=== PATIENT | male | born 1995 | race Two or more races ===

== ENCOUNTER 2024-09-19 20:45 | Emergency (ER) | payer MEDICAID, SELFPAY ==
[2024-09-19 20:46] VITALS: BMI 30.4
[2024-09-19 21:00] VITALS: BP 147/94; PULSE 76; RESP 16; TEMP 37; O2SAT 99
--- NOTE | 2024-09-19 21:14 | XR_ITS ---
Examination: CT abdomen and pelvis without contrast. Coronal 3-D reconstructions. Sagittal 2-D reconstructions. Date and time of exam:September 19, 2024 1118 hrs. Indications: Left leg pain beginning 2 days ago CTDI: vol (mGy): 8.08 DLP: (mGycm): 470 Technique: Axial images of the abdomen have been obtained, 3 mm slice thickness Intravenous contrast material has not been administered. Low dose protocols were performed. One or more of the following dose reduction techniques were used; automated exposure control, adjustment of the mA and/or KV according to patient size, use of iterative reconstruction technique. Findings: No focal liver or splenic lesions Contracted gallbladder No pancreatic or adrenal mass No renal or ureteral calculi, no hydronephrosis Aorta normal size No bowel obstruction No pericecal inflammatory changes No diverticulitis No bladder mass or bladder calculi No prostatomegaly Impression: No renal or ureteral calculi, no hydronephrosis Normal appendix No bladder mass or bladder calculi
--- NOTE | 2024-09-19 21:14 | PD.EDRME ---
Rapid Medical Screening Exam RME Arrival date/time: 09/19/24 20:45 29-year-old male presents emergency department complaining of left-sided flank pain and nausea for 2 days. Chief Complaint: Abdominal Pain Time Seen by Provider: 09/19/24 20:55 Vital signs: Vital Signs Temperature 98.6 F 09/19/24 21:00 Pulse Rate 76 09/19/24 21:00 Respiratory Rate 16 09/19/24 21:00 Blood Pressure 147/94 H 09/19/24 21:00 Pulse Oximetry (%) 99 09/19/24 21:00 Oxygen Delivery Method Room Air 09/19/24 21:00 Vital signs reviewed by provider: Yes
[2024-09-19 21:40] LABS: Basophils % (Auto) 0 % (0-2.5); Eosinophils # (Auto) 0.2 Thou/mm3 (0.0-0.5); Eosinophils % (Auto) 2 % (0-10); Hematocrit 37.4 % (41.0-53.0); Hemoglobin 12.1 g/dL (13.5-16.0); Immature Granulocytes % (Auto) 0 % (0-0); Immature Granulocytes Auto 0.03 Thou/mm3 (0.00-0.00); Lymphocytes # (Auto) 2.3 Thou/mm3 (1.0-4.8); Lymphocytes % (Auto) 23 % (10-50); Mean Corpuscular HGB Conc 32.4 g/dl (31.0-37.0); Mean Corpuscular Volume 71 fL (80-100); Monocytes # (Auto) 0.8 Thou/mm3 (0.0-0.8); Monocytes % (Auto) 8 % (0-12); Neutrophils # (Auto) 6.6 Thou/mm3 (1.8-7.7); Neutrophils % (Auto) 67 % (37-80); Nucleated Red Blood Cell % 0 /100 WBC (0); Platelet Count 213 Thou/mm3 (140-440); RDW Standard Deviation 35.3 fL (35.1-43.9); Red Blood Count 5.26 Miln/mm3 (4.50-5.90); White Blood Count 9.9 Thou/mm3 (3.8-10.6)
[2024-09-19 22:05] LABS: Alanine Aminotransferase 16 U/L (10-49); Albumin, Serum 4.5 gm/dL (3.5-5.0); Albumin/Globulin Ratio 1.8 (1.2-2.2); Alkaline Phosphatase 75 U/L (46-116); Anion Gap 5 (7-16); Aspartate Amino Transferase 17 U/L (0-34); BUN/Creatinine Ratio 11 Ratio (12-20); Bilirubin,Total 0.4 mg/dL (0.3-1.2); Blood Urea Nitrogen 17 mg/dL (9-23); Calcium 9.3 mg/dL (8.3-10.6); Calcium (Corrected) 9.3 mg/dL (8.5-10.1); Carbon Dioxide 28.5 mMol/L (20.0-31.0); Chloride 106 mMol/L (98-107); Creatinine (Component) 1.6 mg/dL (0.6-1.3); Estimated Creatinine Clearance 75.9 mL/min (>60); Globulin 2.5 gm/dL (2.3-3.5); Glucose 109 mg/dL (74-106); Lipase 45 U/L (12-53); Osmolality,Calculated 280 (275-295); Potassium 3.3 mMol/L (3.4-5.1); Sodium 139 mMol/L (136-145); eGFR > 60 See Note
[2024-09-19] MEDS: ONDANSETRON ODT 4 MG TABRAP PO (22:30)
[2024-09-19] MEDS: HYDROcodone/APAP 5/325 TABLET 1 TAB PO (22:30)
[2024-09-19] MEDS: KETOROLAC INJ 60 MG/2 ML VIAL 30 MG IM (22:30)
[2024-09-20 00:03] LABS: Collection Type, Urine Clean Catch; Squamous Epithelial Cell,Urine 0 /hpf (0-5)
[2024-09-20 00:16] LABS: Bilirubin,Urine Negative (Negative); Blood,Urine Trace (Negative); Clarity,Urine Clear (Clear/Hazy); Color,Urine Lt-Yellow (Lt Yel-Yel); Culture Indicated,Urine Not Indicated; Glucose, Urine Negative (Negative); Ketones,Urine Negative (Negative); Leukocyte Esterase,Urine Negative (Negative); Nitrite,Urine Negative (Negative); Protein,Urine 2+ (Neg - Trace); RBC,Urine 2 /hpf (0-3); Specific Gravity,Urine 1.012 (1.001-1.035); Urobilinogen,Urine Negative mg/dL (0.0-1.0); WBC,Urine 1 /hpf (0-5)
--- NOTE | 2024-09-20 00:29 | PD.EDABDPN ---
ED Abdominal Pain RME/HPI General Chief Complaint: Abdominal Pain Stated complaint: BACK PAIN,ABD PAIN, N/V Time seen by provider: 09/19/24 20:55 Arrival date/time: 09/19/24 20:45 29-year-old male presents emergency department complaining of left-sided flank pain and nausea for 2 days. Patient denies any fever, chills, dysuria, hematuria, or any other associated symptom. Source: patient Mode of arrival: ambulatory Limitations: no limitations RME / HPI RME / HPI narrative: 09/19/24 20:45 29-year-old male presents emergency department complaining of left-sided flank pain and nausea for 2 days. Related Data Previous Rx's ?Medication ?Instructions ?Recorded hydrocodone 5 mg-acetaminophen 325 1 tab PO BID PRN pain #7 tabs 09/20/24 mg tablet ondansetron 4 mg disintegrating 4 mg PO Q8H PRN nausea and 09/20/24 tablet vomiting #7 tabs Allergies Allergy/AdvReac Type Severity Reaction Status Date / Time Penicillins Allergy Unknown Verified 09/19/24 20:50 Review of Systems Review of Systems Systems Reviewed: All systems reviewed, normal except as documented Constitutional Constitutional: Reports system reviewed and no additional complaints, except as documented, Denies body ache(s), Denies chills and Denies fever(s) Eyes Eyes: Reports system reviewed and no additional complaints, except as documented and Denies change in vision ENT Ears, Nose, Mouth, and Throat: Reports system reviewed and no additional complaints, except as documented, Denies disequilibrium, Denies dizziness, Denies sore throat and Denies vertigo Cardiovascular Cardiovascular: Reports system reviewed and no additional complaints, except as documented, Denies chest pain and Denies dyspnea Respiratory Respiratory: Reports system reviewed and no additional complaints, except as documented, Denies chest congestion, Denies cough and Denies dyspnea Gastrointestinal Gastrointestinal: Reports system reviewed and no additional complaints, except as documented, Denies abdominal pain, Reports nausea and Denies vomiting Musculoskeletal Musculoskeletal: Reports system reviewed and no additional complaints, except as documented, Denies abnormal gait, Denies arthralgias and Reports back pain Integumentary/Breasts Skin/Breast: Reports system reviewed and no additional complaints, except as documented, Denies erythema, Denies rash and Denies wounds Neurologic Neurologic: Reports system reviewed and no additional complaints, except as documented, Denies abnormal gait, Denies disequilibrium, Denies dizziness and Denies vertigo Past Medical History Social History SMOKING STATUS: Never smoker ED Exam General Limitations: Present no limitations General appearance: Present alert and in no apparent distress Head Head exam: Present atraumatic Eye Eye exam: Present normal appearance, PERRL and EOMI ENT ENT exam: Present normal exam, normal oropharynx and mucous membranes moist Neck Neck exam: Present normal inspection, full ROM and trachea midline Chest Chest inspection: Present normal inspection and symmetric chest wall rise Respiratory Respiratory exam: Present normal lung sounds bilaterally Cardiovascular Cardiovascular exam: Present regular rate, normal rhythm and normal heart sounds Abdominal Exam Abdominal exam: Present soft and normal bowel sounds Extremities Exam Extremities exam: Present normal inspection and full ROM Back Exam Back exam: Present normal inspection and full ROM Neurological Exam Neurological exam: Present alert, oriented X3 and CN II-XII intact Psychiatric Psychiatric exam: Present normal affect and normal mood Skin Skin exam: Present warm, dry, intact and normal color Course Quality Measures none Orders Category Date Time Status Insert IV NOW Care 09/20/24 00:[address] abdomen pelvis wo con Stat Exams 09/19/24 21:14 Completed CBC Stat Lab 09/19/24 21:24 Completed CMP [Comprehensive Metabolic Panel] Stat Lab 09/19/24 21:24 Completed Lipase Stat Lab 09/19/24 21:24 Completed Urinalysis, C/S if Indicated Stat Lab 09/19/24 23:57 Completed HYDROcodone*/APAP 5/325 [[place] 5/325] Med 09/19/24 22:09 Discontinued 1 tab PO X1 ONE Ketorolac Inj [Toradol Inj] Med 09/19/24 21:14 Discontinued 30 mg IM X1 ONE Ondansetron Odt [Zofran Odt] Med 09/19/24 21:15 Discontinued 4 mg PO X1 ONE Potassium Chloride [K-Dur] Med 09/20/24 00:29 Discontinued 20 meq PO X1 ONE Sodium Chloride 0.9% 1000 ml [Ns] 1,000 ml Med 09/20/24 00:05 Discontinued IV 999 mls/hr Vital Signs Vital signs: Vital Signs Temperature 98.6 F 09/19/24 21:00 Pulse Rate 76 09/19/24 21:00 Respiratory Rate 16 09/19/24 21:00 Blood Pressure 147/94 H 09/19/24 21:00 Pulse Oximetry (%) 99 09/19/24 21:00 Oxygen Delivery Method Room Air 09/19/24 21:00 99% room air within normal limits Abdominal Pain MDM MDM Narrative MDM Narrative:: 29-year-old male presents emergency department complaining of left-sided flank pain and nausea for 2 days. Patient denies any fever, chills, dysuria, hematuria, or any other associated symptom. CBC was unremarkable for any leukocytosis. CMP unremarkable for any elevated lipase or elevated liver enzymes. Potassium 3.3 which was replenished with 20 mEq of oral potassium. Creatinine 1.6 patient reports has not been drinking enough water as he should be patient given 1 L bolus NS. Urinalysis was unremarkable. CT abdomen pelvis without was also unremarkable. Patient appears nontoxic and is hemodynamically stable. Patient was given pain medication and reported significant improvement in pain and no episodes of vomiting. Abdomen soft and nontender. Patient discharged ducted to follow-up with primary care provider return immediately for any worsening symptoms or as needed Patient data External records reviewed:: None Clinical information provided by:: patient Social determinants that could affect healthcare access:: none Patient has the following chronic illnesses:: None How is presenting disease/condition affected by chronic disease/condition?: no chronic disease Evaluation data The following diagnostics were reviewed and interpreted by me:: lab results and radiology exam(s) Lab and/or radiology exams considered but not ordered:: Ordered Interpretation Summary: Interpreted by me Medications / Prescriptions Medications or Prescriptions considered but not ordered:: Ordered Medication administrations:: Medication Administration History Discontinued Medications Hydrocodone Bitart/Acetaminophen (Hydrocodone/Apap 5/325 Tablet) 1 tab PO X1 ONE Stop: 09/19/24 22:10 Last Admin: 09/19/24 22:30 Dose: 1 tab Documented By: LEOPOLDO Sodium Chloride (Ns) 1,000 mls @ 999 mls/hr IV .Q1H1M ONE Stop: 09/20/24 01:05 Last Infusion: 09/20/24 01:28 Dose: Infused Documented By: Admin: 09/20/24 00:39 Dose: 999 mls/hr Documented By: LEOPOLDO Ketorolac Tromethamine (Ketorolac Inj 60 Mg/2 Ml Vial) 30 mg IM X1 ONE Stop: 09/19/24 21:15 Last Admin: 09/19/24 22:30 Dose: 30 mg Documented By: LEOPOLDO Ondansetron HCl (Ondansetron Odt 4 Mg Tabrap) 4 mg PO X1 ONE; Protocol Stop: 09/19/24 21:16 Last Admin: 09/19/24 22:30 Dose: 4 mg Documented By: LEOPOLDO Potassium Chloride (Potassium Chloride 20 Meq Tabcr) 20 meq PO X1 ONE Stop: 09/20/24 00:30 Last Admin: 09/20/24 00:43 Dose: 20 meq Documented By: LEOPOLDO Given Consultations Consultation(s) initiated? (list below): No Diagnosis Differential diagnosis abdominal pain: abdominal pain, acute appendicitis, calculus of kidney, constipation, diverticulitis, gastroenteritis, pancreatitis and small bowel obstruction Most likely diagnosis given after review of the tests above:: Abdominal pain Admission Indicated Admission indicated?: not indicated Admission Request Was there a request for admission?: No Disposition Plan Disposition Plan: Discharge Discharge Attestation Discharge Attestation: The patient and all family members were given an opportunity to ask questions and understood the discharge instructions. Discharge instructions specifically effects, indications for sooner follow up or return to the emergency department, and the expected course of current diagnosis. Patient condition: Stable Discharge Plan Plan Patient Disposition: HOME (Self Care) Disposition Comment: Stable Prescriptions/Referrals Prescriptions/Med Rec: New hydrocodone-acetaminophen 5-325 mg tablet 1 tab PO BID MDD 2 tabs PRN (Reason: pain) Qty: 7 0RF ondansetron 4 mg tablet,disintegrating 4 mg PO Q8H PRN (Reason: nausea and vomiting) Qty: 7 0RF Referrals: No Primary/Family,Physician [Primary Care Provider] - In 1 week Problem List Clinical Impression: Abdominal pain Patient/Caregiver Discharge Instructions Discharge Activity: activity as tolerated Education Materials: Abdominal Pain, ED Pain, Acute, Uncertain Cause Additional Instructions: Drink plenty of fluids and stay hydrated. Take pain medication as prescribed. Follow-up with primary care provider in 2 to 3 days. Return to emergency department for any worsening symptoms or as needed. Print Language: Maltese Stand Alone Forms: June Award Info., Patient Portal Info Letter PA/DIONISIO Supervising Physician ARTIS/DIONISIO Supervising Physician: Dr. Kay
[2024-09-20] MEDS: SODIUM CHLORIDE 0.9% 1000 ML 1,000 ML 999 ML IV (00:39)
[2024-09-20] MEDS: POTASSIUM CHLORIDE 20 mEq TABCR PO (00:43)
[2024-09-20 01:29] VITALS: RESP 18
== END 2024-09-20 01:30 | disposition home or self-care (01) ==
PROVIDERS: Emergency Provider Emergency Medicine
DX: R10.9 Unspecified abdominal pain (principal)
CPT/HCPCS: 36415; 74176; 80053; 81001; 83690; 85025; 96372; 99284; J1885; J7030; Q0162; A9270

== ENCOUNTER 2024-09-20 19:56 | Emergency (ER) | payer MEDICAID, SELFPAY ==
[2024-09-20 19:56] VITALS: BMI 30.4
[2024-09-20 20:00] VITALS: BP 151/87; PULSE 87; RESP 20; TEMP 36.8; O2SAT 99
--- NOTE | 2024-09-20 20:11 | XR_ITS ---
Examination: CT lumbar spine, without contrast. 2-D sagittal reconstructions. 2-D coronal reconstructions. 3-D reconstructions. Date and time of exam:September 20, 20242024 hrs. Indications: Low back pain beginning 3 days ago CTDI: vol (mGy):19.5 DLP: (mGycm):735 Technique: Multiple 1.25 mm axial sections of the lumbar spine without intravenous contrast have been obtained. 2-D sagittal and coronal reconstructions have been obtained. 3-D reconstructions have been obtained. Low dose protocols were performed. One or more of the following dose reduction techniques were used; automated exposure control, adjustment of the mA and/or KV according to patient size, use of iterative reconstruction technique. Findings: Adequate alignment lumbar vertebral bodies on the lateral view No lumbar fracture Mild disc narrowing posteriorly L5-S1 No spondylolisthesis L5-S1 no disc protrusion L4-L5 3 mm central lumbar disc bulge L3-L4 no disc protrusion L2-L3 no disc protrusion L1-L2 no disc protrusion Impression: No lumbar fracture L4-L5 3 mm central lumbar disc bulge As clinically warranted, MRI lumbar spine without contrast follow-up would best assess for acquired soft tissue spinal stenosis
--- NOTE | 2024-09-20 20:12 | PD.EDRME ---
Rapid Medical Screening Exam RME Arrival date/time: 09/20/24 19:56 29-year-old male no significant past medical history presents emergency department complaining of low back pain for 5 days. Patient reports was seen yesterday and discharged. Chief Complaint: Back Pain/Injury Time Seen by Provider: 09/20/24 20:01 Vital signs: Vital Signs Temperature 98.2 F 09/20/24 20:00 Pulse Rate 87 09/20/24 20:00 Respiratory Rate 20 09/20/24 20:00 Blood Pressure 151/87 H 09/20/24 20:00 Pulse Oximetry (%) 99 09/20/24 20:00 Oxygen Delivery Method Room Air 09/20/24 20:00 Vital signs reviewed by provider: Yes
[2024-09-20] MEDS: DIAZEPAM 5 MG TABLET PO (20:38)
[2024-09-20] MEDS: KETOROLAC INJ 60 MG/2 ML VIAL 30 MG IM (20:40)
[2024-09-20 20:52] LABS: Basophils # (Auto) 0.1 Thou/mm3 (0.0-0.2); Basophils % (Auto) 0 % (0-2.5); Eosinophils # (Auto) 0.1 Thou/mm3 (0.0-0.5); Eosinophils % (Auto) 1 % (0-10); Hematocrit 37.2 % (41.0-53.0); Immature Granulocytes % (Auto) 0 % (0-0); Immature Granulocytes Auto 0.04 Thou/mm3 (0.00-0.00); Lymphocytes % (Auto) 17 % (10-50); Mean Corpuscular HGB Conc 32.3 g/dl (31.0-37.0); Mean Corpuscular Hemoglobin 23.1 pg (25.0-35.0); Mean Corpuscular Volume 72 fL (80-100); Monocytes # (Auto) 0.9 Thou/mm3 (0.0-0.8); Monocytes % (Auto) 7 % (0-12); Neutrophils # (Auto) 8.6 Thou/mm3 (1.8-7.7); Neutrophils % (Auto) 74 % (37-80); Nucleated Red Blood Cell % 0 /100 WBC (0); Platelet Count 223 Thou/mm3 (140-440); RDW Standard Deviation 36.2 fL (35.1-43.9); Red Blood Count 5.19 Miln/mm3 (4.50-5.90); White Blood Count 11.7 Thou/mm3 (3.8-10.6)
[2024-09-20 20:59] LABS: Collection Type, Urine Clean Catch; Squamous Epithelial Cell,Urine 0 /hpf (0-5)
[2024-09-20 21:03] LABS: Alanine Aminotransferase 19 U/L (10-49); Albumin, Serum 4.5 gm/dL (3.5-5.0); Albumin/Globulin Ratio 1.9 (1.2-2.2); Alkaline Phosphatase 69 U/L (46-116); Anion Gap 8 (7-16); Aspartate Amino Transferase 16 U/L (0-34); BUN/Creatinine Ratio 11 Ratio (12-20); Bilirubin,Total 0.4 mg/dL (0.3-1.2); Blood Urea Nitrogen 17 mg/dL (9-23); Calcium 9.1 mg/dL (8.3-10.6); Calcium (Corrected) 9.1 mg/dL (8.5-10.1); Carbon Dioxide 27.3 mMol/L (20.0-31.0); Chloride 105 mMol/L (98-107); Creatinine (Component) 1.6 mg/dL (0.6-1.3); Estimated Creatinine Clearance 75.9 mL/min (>60); Globulin 2.4 gm/dL (2.3-3.5); Glucose 124 mg/dL (74-106); Osmolality,Calculated 281 (275-295); Potassium 3.5 mMol/L (3.4-5.1); Sodium 140 mMol/L (136-145); Total Protein 6.9 gm/dL (5.7-8.2); eGFR > 60 See Note
[2024-09-20 21:04] LABS: Bilirubin,Urine Negative (Negative); Blood,Urine Negative (Negative); Clarity,Urine Clear (Clear/Hazy); Color,Urine Colorless (Lt Yel-Yel); Culture Indicated,Urine Not Indicated; Glucose, Urine Negative (Negative); Ketones,Urine Negative (Negative); Leukocyte Esterase,Urine Negative (Negative); Nitrite,Urine Negative (Negative); Protein,Urine 1+ (Neg - Trace); RBC,Urine 2 /hpf (0-3); Specific Gravity,Urine 1.006 (1.001-1.035); Urobilinogen,Urine Negative mg/dL (0.0-1.0); WBC,Urine 1 /hpf (0-5)
[2024-09-20 21:07] LABS: Sed Rate (ESR) 15 mm/hr (0-15)
--- NOTE | 2024-09-20 21:24 | PD.EDBACK ---
ED Back Injury Pain RME/HPI General Chief Complaint: Back Pain/Injury Stated Complaint: LOWER BACK PAIN Time Seen by Provider: 09/20/24 20:01 Arrival date/time: 09/20/24 19:56 29 year old male present to emergency room with c/o of low back pain for 5 days. Denies new trauma No fevers No unexplained weight loss of night sweats No recent surgeries or recurrent bacterial infections No IVDU Patient is not immunocompromised Denies any new focal neurological deficits or new motor weakness Denies bowel or bladder incontinence or saddle anesthesia LOCATION: diffuse low back SEVERITY: Symptoms are described as being severe with limitations on activities of daily living QUALITY: Symptoms are described as being dull or achy CONTEXT: The patient is unable to identify any inciting events. DURATION/TIMING: The symptoms started approximately 5 day ago and have been constant this then. ASSOCIATED SYMPTOMS: The patient is unable to identify any other associated symptoms. MODIFYING FACTORS: The patient is unable to identify any alleviating or aggravating symptoms. PERTINENT ROS: no fevers, no IVDU, denies any ripping or tearing sensations, no associated abdominal pain, no focal neurological deficits and denies any saddle anesthesia, and no bowel or bladder incontinence REVIEW OF SYSTEMS: See History of Present Illness - with the exception of those mentioned in the history of present illness, all other systems reviewed and reported as negative GENERAL: In general the patient is awake, interactive, in an emergency department gurney. HEAD/EYES/EARS/NOSE/THROAT: normo-cephalic, atraumatic, mucus membranes are moist, anicteric, palpebral conjunctiva is pink, trachea is midline. CARDIOVASCULAR: regular rate and regular rhythm, no murmurs, heart sounds are not distant, strong pulses in all four extremities that are equal and symmetric bilateral upper and lower extremities, normal capillary refill. CHEST/PULMONARY: normal chest rise and fall, good air movement, clear to auscultation bilaterally, normal inspiratory to expiratory ratios without evidence of respiratory distress. NECK: No midline/Paraspinal tenderness, no step off ROM/Strenght intact No Kernig and bruzinski sign. No trauma ABDOMEN: soft, not tender, no masses appreciated BACK: + lower paraspinal tenderness. no midline tenderness normal range of motion without pain. NEUROLOGICAL: cranio-facial features are symmetric, moves all four extremities equally without obvious limitations or weakness. EXTREMITY: no tenderness to palpation over the long bones or large joints of the bilateral upper and lower extremities, no joint swelling, no joint erythema, no signs of trauma, no unilateral leg swelling and no peripheral edema. SKIN: warm, dry, well-perfused, no jaundice, no rash, no telangiectasias or petechia. PSYCH: calm, cooperative, no evidence of psychosis or agitation RME / HPI RME / HPI Narrative: 09/20/24 19:56 29-year-old male no significant past medical history presents emergency department complaining of low back pain for 5 days. Patient reports was seen yesterday and discharged. Related Data Previous Rx's ?Medication ?Instructions ?Recorded hydrocodone 5 mg-acetaminophen 325 1 tab PO BID PRN pain #7 tabs 09/20/24 mg tablet methocarbamol 500 mg tablet 500 mg PO TID #30 tabs 09/20/24 methylprednisolone 4 mg tablets in 4 mg PO .as directed #21 tabs 09/20/24 a dose pack (Medrol (Jhonatan)) naproxen 500 mg tablet 500 mg PO BID PRN pain #30 tabs 09/20/24 ondansetron 4 mg disintegrating 4 mg PO Q8H PRN nausea and 09/20/24 tablet vomiting #7 tabs Allergies Allergy/AdvReac Type Severity Reaction Status Date / Time Penicillins Allergy Unknown Verified 09/19/24 20:50 Course Course Course Narrative: Patient presenting with acute onset back pain.? CT lumbar returned without evidence for fracture.? No evidence for cauda equina, spinal infection, bony injury, other significant pathology.? The patient did not have any urinary incontinence, bowel incontinence, saddle anesthesia, fever, or weight loss that would advanced warrant imaging. Patient was provided with medro dose jhonatan, methocarbamol, naproxen with improvement of symptoms.? ?Patient was advised to followup with primary physician in 7-14 days if continuing to have back pain. Advised to present to ER if signs of cauda equina or spinal infection develop including loss of bowel or bladder function, peripheral numbness/weakness/tingling, significant fevers, or other concerns. At time of discharge patient able to ambulate and vitals stable.? Impression:? Back pain Plan:? Prescribed medro dose, methocarbamol, naproxen? Advised Ibuprofen for pain and inflammation. Advised patient on supportive therapies, including rest, relaxation techniques, heat application, weight loss, ergonomic therapies, and refraining from lifting heavy objects. Instructed patient on low back pain ROM exercises. Warning symptoms discussed which would prompt return. Quality Measures none Orders Category Date Time Status CT lumbar spine wo con Stat Exams 09/20/24 20:11 Completed CBC Stat Lab 09/20/24 20:38 Completed CMP [Comprehensive Metabolic Panel] Stat Lab 09/20/24 20:38 Completed CRP [C-Reactive Protein] Stat Lab 09/20/24 20:38 Completed ESR [Sed Rate (ESR)] Stat Lab 09/20/24 20:38 Completed Urinalysis, C/S if Indicated Stat Lab 09/20/24 20:44 Completed Diazepam [Valium] Med 09/20/24 20:11 Discontinued 5 mg PO X1 ONE Ketorolac Inj [Toradol Inj] Med 09/20/24 20:11 Discontinued 30 mg IM X1 ONE Reevaluation(s) Reevaluation #1: pt is feeling better and comfortable to go home Vital Signs Vital signs: Vital Signs Temperature 98.2 F 09/20/24 20:00 Pulse Rate 87 09/20/24 20:00 Respiratory Rate 20 09/20/24 20:00 Blood Pressure 151/87 H 09/20/24 20:00 Pulse Oximetry (%) 99 09/20/24 20:00 Oxygen Delivery Method Room Air 09/20/24 20:00 Back Pain / Injury Patient data External records reviewed:: [facility] previous records Clinical information provided by:: patient Social determinants that could affect healthcare access:: none Patient has the following chronic illnesses:: n/a How is presenting disease/condition affected by chronic disease/condition?: no chronic disease Evaluation data The following diagnostics were reviewed and interpreted by me:: lab results and radiology exam(s) Lab and/or radiology exams considered but not ordered:: n/a Interpretation Summary: ct: Findings: Adequate alignment lumbar vertebral bodies on the lateral view No lumbar fracture Mild disc narrowing posteriorly L5-S1 No spondylolisthesis L5-S1 no disc protrusion L4-L5 3 mm central lumbar disc bulge L3-L4 no disc protrusion L2-L3 no disc protrusion L1-L2 no disc protrusion Impression: No lumbar fracture L4-L5 3 mm central lumbar disc bulge As clinically warranted, MRI lumbar spine without contrast follow-up would best assess for acquired soft tissue spinal stenosis Medications / Prescriptions Medications or Prescriptions considered but not ordered:: n/a Medication administrations:: Medication Administration History Discontinued Medications Diazepam (Diazepam 5 Mg Tablet) 5 mg PO X1 ONE Stop: 09/20/24 20:12 Last Admin: 09/20/24 20:38 Dose: 5 mg Documented By: LEOPOLDO Ketorolac Tromethamine (Ketorolac Inj 60 Mg/2 Ml Vial) 30 mg IM X1 ONE Stop: 09/20/24 20:12 Last Admin: 09/20/24 20:40 Dose: 30 mg Documented By: LEOPOLDO as stated above Consultations Consultation(s) initiated? (list below): No Diagnosis Differential diagnosis back pain/injury: lumbar radiculopathy, sciatica, strain of lumbar region, renal colic, pyelonephritis, discitis and other (hernia/bulging disc ) Most likely diagnosis given after review of the tests above:: bulging disc Admission Indicated Admission indicated?: not indicated Admission Request Was there a request for admission?: No Disposition Plan Disposition Plan: Discharge Discharge Attestation Discharge Attestation: The patient and all family members were given an opportunity to ask questions and understood the discharge instructions. Discharge instructions specifically effects, indications for sooner follow up or return to the emergency department, and the expected course of current diagnosis. Patient condition: Stable Discharge Plan Plan Patient Disposition: HOME (Self Care) Health Concerns: Follow with PMD as directed Take tylenol or motrin as need Return to ED if sx worsen Prescriptions/Referrals Prescriptions/Med Rec: New methylprednisolone [Medrol (Jhonatan)] 4 mg tablets,dose pack 4 mg PO .as directed Qty: 21 0RF methocarbamol 500 mg tablet 500 mg PO TID Qty: 30 0RF naproxen 500 mg tablet 500 mg PO BID PRN (Reason: pain) Qty: 30 0RF No Action hydrocodone-acetaminophen 5-325 mg tablet 1 tab PO BID MDD 2 tabs PRN (Reason: pain) Qty: 7 0RF ondansetron 4 mg tablet,disintegrating 4 mg PO Q8H PRN (Reason: nausea and vomiting) Qty: 7 0RF Problem List Clinical Impression: Bulging lumbar disc Patient/Caregiver Discharge Instructions Education Materials: Self Care Back Day Print Language: Albanian Stand Alone Forms: June Award Info., Patient Portal Info Letter
== END 2024-09-20 21:49 | disposition home or self-care (01) ==
LOC: SERX 22:00
PROVIDERS: Emergency Provider Emergency Medicine
DX: M51.369 Other intervertebral disc degeneration, lumbar region without mention of lumbar back pain or lower extremity pain (principal)
CPT/HCPCS: 36415; 72131; 80053; 81001; 85025; 85652; 86140; 96372; 99284; J1885; A9270